=== PATIENT | male | born 1980 | race Caucasian/White ===

== ENCOUNTER 2018-04-06 13:00 | Emergency (ER) | payer MEDICAID ==
[~2018-04-06] VITALS: Ht 172.7 cm; Wt 81.8 kg
[2018-04-06 13:09] VITALS: BP 117/65
[2018-04-06] MEDS ORDERED: CEFTRIAXONE 250 MG IM ONE (13:30)
[2018-04-06] MEDS ORDERED: AZITHROMYCIN 250 MG TABLET PO ONE (13:30)
[2018-04-06] MEDS ORDERED: CEFTRIAXONE 250 MG ONE (13:31)
[2018-04-06] MEDS ORDERED: AZITHROMYCIN 500 MG TABLET ONE (13:31)
[2018-04-06 13:43] LABS: MICROSCOPIC NOT IND
[2018-04-06 13:48] LABS: CULTURE INDICATED? NO
== END 2018-04-06 14:05 | disposition home or self-care (01) ==
LOC: ED 13:34
DX: N34.1 Nonspecific urethritis (principal)
CPT/HCPCS: 81003; 87491; 87591; 96372; 99283; J0696